=== PATIENT | female | born 1950 | race Caucasian/White ===

== ENCOUNTER 2018-09-22 09:47 | Inpatient (IN) | payer MEDICARE, OTHER ==
[2018-09-19 09:00] LABS: BASOPHILS % 0.4 % (0.0-1.0); EOSINOPHILS # (AUTO) 0.1 (0.0-0.4); EOSINOPHILS % 1.2 % (0.0-6.0); HEMATOCRIT 42.1 % (34.2-44.1); HEMOGLOBIN 13.9 g/dL (12.0-16.0); LYMPHOCYTES # (AUTO) 3.3 (1.0-3.2); LYMPHOCYTES % 40.6 % (18.0-39.1); MEAN CORPUSCULAR HEMOGLOBIN 29.7 pg (28-32); MONOCYTES # (AUTO) 0.7 (0.2-0.8); MONOCYTES % 8.3 % (4.4-11.3); NEUTROPHILS % 49.3 % (38.7-80.0); PLATELET COUNT 248 x10e3/uL (140-360); RED BLOOD COUNT 4.68 x10e6/uL (3.6-5.1); RED CELL DISTRIBUTION WIDTH 13.9 % (11.7-14.4)
[2018-09-19 09:16] LABS: ANION GAP 14.2 mmol/L (8-16); CALCIUM 9.7 mg/dL (8.4-10.2); CREATININE, SERUM 0.95 mg/dL (0.57-1.11); POTASSIUM 4.2 mmol/L (3.5-5.1)
--- NOTE | 2018-09-19 10:33 | Diagnostic Imaging Report ---
PROCEDURE: X-RAY CHEST, TWO VIEWS COMPARISON: None. INDICATIONS: MORBID OBESITY, PRE-OP, DENIES CHEST COMPLAINTS FINDINGS: LUNGS: No consolidations or edema. PLEURA: No effusions or pneumothorax. HEART & MEDIASTINUM: The heart is within normal size-limits. BONES & SOFT TISSUES: No acute findings. There is mild scoliosis present. CONCLUSION: No acute thoracic abnormality. Ziyad Roman D.O. Dictated by: Ziyad Roman D.O. on 09/19/2018 at 10:44 Electronically approved by: Ziyad Roman D.O. on 09/19/2018 at 10:44
[~2018-09-22] VITALS: Ht 175.3 cm; Wt 112.0 kg
[~2018-09-22 09:47] MED LIST: CALAN SR180 MG PO; COLESTIPOL HCL1 GM PO; FENOFIBRATE200 MG PO; LOSARTAN POTASS25 MG PO; NOVOLOG100 UNIT/1 SQ; PRAVASTATIN SOD40 MG PO; TRESIBA SQ
--- OUTSIDE RECORDS SUMMARY | 2018-09-22 09:49 | XMS REPORT ---
Author Author [facility] Address Unknown Phone Unavailable Care Team Providers Care Alining Inspector Name Role Phone Mer RICHARD Unavailable Unavailable Problems This patient has no known problems. Allergies, Adverse Reactions, Alerts This patient has no known allergies or adverse reactions. Medications This patient has no known medications. Results Test Description Test Time Test Comments Text Results Atomic Results Result Comments CHEST 2 VIEWS 2018-09-19 10:44:00 [place] [address] Patient Name: GALDINO WHITTINGTON MR #: [id number] : 1950 Age/Sex: 67/F Req #: [id number] [facility] Physician: Ordered by: ANDREI RICHARD MD Report #: [id number] Location: OR Room/Bed: Procedure: [id number] DX/CHEST 2 VIEWS Exam Date: 09/19/18 Exam Time: 09 REPORT STATUS: Signed PROCEDURE: X-RAY CHEST, TWO VIEWS COMPARISON: None. IND ICATIONS: MORBID OBESITY, PRE-OP, DENIES CHEST COMPLAINTS FINDINGS: LUNGS: No consolidations or edema. PLEURA: No effusions or pneumothorax. HEART MEDIASTINUM: The heart is within normal size- limits. BONES SOFT TISSUES: No acute findings. There is mild scoliosis present. CONCLUSION: No acute thoracic abnormality. Eve Roman D.O. Dictated by: Eve Roman D.O. on 09/19/2018 at 10:44 Electronically approved by: Eve Roman D.O. on 09/19/2018 at 10:44 Dictated By: EVE ROMAN DO Electr onically Signed By: EVE ROMAN DO on 09/19/18 1044 Transcribed By: LILY on 09/19/18 1044 COPY TO: ANDREI RICHARD MD LIPID PROFILE 2018-09-03 19:47:00 CHOLEST (test code=CHOLEST) 238 MG/DL 0-200 TRIGLYCE (test code=TRIGLYCE) 186 MG/DL 0-150 HDL (test code=HDL) 74 MG/DL 35-90 NEGATIVE RISK FACTOR FOR HEART DISEASE IF HDL >/=60 mg/dl MAJOR RISK FACTOR FOR HEART DISEASE IF HDL <40 mg/dL CALC LDL (test code=CALC LDL) 127 MG/DL <100 [id number] 19:47:00* Test Item Value Reference Range Comments MG (test code=MG) 1.7 mg/dL 1.6-2.3 THYROID STIMULATION [id number] 19:47:00* Test Item Value Reference Range Comments TSH (test code=TSH) 1.89 UIU/ML 0.465-4.68 VITAMIN D [id number] 19:47:00* Test Item Value Reference Range Comments VITAMIN D, 25-HYDROXY (test code=VITD,25) 15.4 Vitamin D guideline has been defined by the [place] [employer] and [employer] practice as followed: Deficient: less than 20 ng/mL Insufficient: 21-29 ng/mL Sufficient: 30-100 ng/mL Potential Toxicity: >100ng/mL [id number] 19:46:00* Test Item Value Reference Range Comments SODIUM (test code=NA) 140 MMOL/L 137-145 K+ (test code=KSERUM) 4.2 MMOL/L 3.5-5.1 PLEASE NOTE NEW REFERENCE RANGE(S) IN EFFECT EFFECTIVE 05/11/2010 - NEW ANALYZER (VITROS 5600) CHLORIDE (test code=CL) 103 MMOL/L 98-107 CO2 (test code=CO2) 28 MMOL/L 22-30 BUN (test code=BUN) 18 MG/DL 7-17 CREA (test code=CREA) 0.9 MG/DL 0.7-1.2 GLUCOSE (test code=GLUCOSE) 156 MG/DL 70-99 Fasting glucose normal <100 MG/DL- [place] [employer] recommendation CALCIUM (test code=CABLOOD) 9.3 MG/DL 8.4-10.2 TOTPROT (test code=TOTPROT) 7.2 G/DL 6.3-8.2 ALBUMIN (test code=ALBSERUM) 4.3 G/DL 3.5-5.0 BILITOT (test code=BILITOT) 0.5 MG/DL 0.2-1.3 AST (test code=AST) 24 U/L 15-46 PHOSALK (test code=PHOSALK) 124 U/L 38-126 ALT (test code=ALT) 27 U/L 13-69 GFR (test code=GFR) 66 mL/min/1.73m2 A GFR of >90 mL/min/1.73m2 is considered normal. % HEMOGLOBIN A1C (GLYCATED)2018-09-03 19:10:00* Test Item Value Reference Range Comments HEMOGLOBIN A1C (test code=GLYCO-) 8.9 % 0-6 THERAPEUTIC TARGET FOR THE TREATMENT OF DIABETES MELLITUS PATIENTS IS < 7% HBA1C. [employer] AND [place] [employer]. DIABETES CARE 2002;25:S33-S49 [id number] 18:03:00* Test Item Value Reference Range Comments WBC (test code=WBC) 8.4 K/UL 3.5-10.9 RBC (test code=RBC) 4.79 M/UL 4.0-5.0 HGB (test code=HGB) 14.2 G/DL 11.5-15.5 HCT (test code=HCT) 41.5 % 34-46 MCV (test code=MCV) 86.6 FL 80-98 MCH (test code=MCH) 29.6 PG 28-32 MCHC (test code=MCHC) 34.2 G/DL 32.5-36.5 RDW (test code=RDW) 14.0 % 11.5-14.5 PLT (test code=PLT) 214 K/UL 150-450 MPV (test code=MPV) 11.3 FL 7.4-10.4 MANDIFF (test code=MANDIFF) NO SCAN (test code=SCAN) NO NEUT% (test code=NEUT%) 51.6 % 40-75 LYMPH% (test code=LYMPH%) 38.4 % 24-44 MONO% (test code=MONO%) 7.6 % 0-13 EOS% (test code=EOS%) 1.8 % 0-4 BASO % (test code=BASO%) 0.4 % 0-2 IG (test code=IG) 0 % 0-1 IG% (test code=IG%) 0.2 % 0-1 IG%=Metamyelocytes, Myelocytes, and Promyelocytes. (Immature neutrophils not including "bands".) > 3% IG indicates risk of sepsis NRBC% (test code=NRBC%) 0 /100 WBC ABS NEUT (test code=NEUT) 4.4 K/UL 1.2-7.2
[2018-09-22] MEDS ORDERED: DEXTROSE 5% 250ML 250 ML IV ONE (10:17)
[2018-09-22] MEDS ORDERED: CEFAZOLIN SOD 2 GM/D5W 50ML 50 ML IV ONE (10:17)
[2018-09-22] MEDS ORDERED: BUPIVACAINE 0.25%/EPI 30ML SDV INJ ONE (10:22)
[2018-09-22] MEDS ORDERED: BUPIVACAINE HCL 0.5% INJ 30 ML VIAL INJ ONE (10:24)
[2018-09-22] MEDS ORDERED: SCOPOLAMINE 1.5 MG PATCH TOP SCH (12:00)
[2018-09-22] MEDS ORDERED: ONDANSETRON HCL INJ 2 MG/ML VIAL IV PRN (12:00)
[2018-09-22] MEDS ORDERED: MORPHINE SULFATE 2 MG/ML SYR IV PRN (12:00)
[2018-09-22] MEDS ORDERED: LIDOCAINE HCL (LTA) 4 ML SOLN ONE (12:07)
[2018-09-22] MEDS ORDERED: SCOPOLAMINE 1.5 MG PATCH ONE (12:07)
[2018-09-22] MEDS ORDERED: BUPIVACAINE 0.25% 30ML SDV INJ ONE (12:20)
[2018-09-22] MEDS ORDERED: HYDROMORPHONE 1MG/1ML INJ IV PRN (12:45)
[2018-09-22] MEDS ORDERED: HYDROMORPHONE 2MG/ML 2 MG/ML ML IV PRN (13:30)
[2018-09-22] MEDS ORDERED: SUGAMMADEX SODIUM 200 MG/2 ML VIAL IV ONE (13:31)
[2018-09-22] MEDS ORDERED: FENTANYL CITRATE/PF 100MCG/2 ML INJ ONE ×2 (14:20→17:42)
--- NOTE | 2018-09-22 14:45 | Operative Report ---
DATE OF PROCEDURE: September 22, 2018 PREOPERATIVE DIAGNOSES 1. Morbid obesity, body mass index 37. 2. Type-2 diabetes mellitus. 3. Hiatal hernia. POSTOPERATIVE DIAGNOSES 1. Morbid obesity, body mass index 37. 2. Type-2 diabetes mellitus. 3. Hiatal hernia. PREOP INDICATIONS 1. Treat disease, prevent complications related to comorbid conditions of obesity. 2. Prevent complications related to hiatal hernia. PROCEDURES 1. Laparoscopic vertical sleeve gastrectomy (CPT 17222). 2. Laparoscopic hiatal hernia repair (CPT 90615). ANESTHESIA: General. POKER PROP PLAYER: Benji Sanchez, surgical virtual assistant for advertisers (needed due to complexity of case). FLUIDS: As per anesthesia. EBL: 15 mL. DRAINS: None. COMPLICATIONS: None. SPECIMENS: Partial stomach (opened at the back table, not sent to pathology). FINDINGS 1. Moderate-size hiatal hernia. 2. Normal upper GI anatomy. 3. Negative intraoperative EGD leak test. GRAFTS: None. PROCEDURAL DETAILS: The patient was brought to the operating room and was intubated under general endotracheal anesthesia. She was sterilely prepped and draped in the usual fashion. A preprocedure pause was performed, identifying the patient's name, perioperative antibiotics, intended procedure, and staff surgeon. A 5-mm left subcostal incision was made to insert a Veress needle and insufflate the abdomen to a pressure of 15 mmHg pressure. Four additional trocars were placed in the standard positions. The patient was then placed in reverse Trendelenburg position, and a liver retractor was placed and identified a moderate-size hiatal hernia. I approached this through incising the gastrohepatic ligament through the pars flaccida technique using the [place] LigaSure device. Then I reduced the contents of the hiatal hernia along the length of the right and left crura of the diaphragm. Once the hernia was reduced, I then closed the defect anteriorly with a 2-0 Surgidac suture in a figure-of-8 interrupted fashion. I then turned my attention to the stomach and mobilized the greater curvature of the stomach beginning about 4 cm proximal to the pyloric valve up to the left elias of the diaphragm proximally using the [place] LigaSure device. Once the greater curvature of the stomach was mobilized, I then inserted an adult-size endoscope along the lesser curvature of the stomach. I constructed our gastric sleeve by resecting the greater curvature of the stomach using multiple firings of an Endo DEVORAH purple load [employer] Seamguard reinforced stapling device. Once the greater curvature of the stomach was resected, we conducted an intraoperative EGD leak test, and no leaks were identified along the leave staple line. The specimen was removed through the right periumbilical port site. The port site was closed with #0 Vicryl suture using the Mauricio-Pauline technique in a figure-of-8 fashion. Hemostasis was verified. The liver retractor was removed and the pneumoperitoneum was dissipated. We then removed the trocars and closed the incision sites with 4-0 Monocryl suture in subcuticular fashion. Dermabond dressings were applied. We used 0.25% bupivacaine at both preperitoneal incision sites. The patient tolerated the procedure well. Type of wound was type 2, clean and contaminated. Job#: [id number] JCARLOS REYES
[2018-09-22] MEDS ORDERED: HYDROMORPHONE 2MG/ML 2 MG/ML ML ONE (15:13)
[2018-09-22] MEDS ORDERED: MIDAZOLAM HCL 2 MG/2 ML VIAL ONE (17:42)
[2018-09-22] MEDS ORDERED: ACETAMINOPHEN 1000 MG/100 ML 100 ML IV ONE (18:47)
[2018-09-22] MEDS ORDERED: DEXAMETHASONE SOD PHOS INJ 4 MG/ML VIAL ONE (18:55)
[2018-09-22] MEDS ORDERED: ROCURONIUM BROMIDE 10 MG/ML 5ML VIAL ONE (18:55)
[2018-09-22] MEDS ORDERED: ONDANSETRON HCL INJ 2 MG/ML VIAL ONE (18:55)
[2018-09-22] MEDS ORDERED: SEVOFLURANE INHAL SOLN 250 ML PEN BTL ONE (18:55)
[2018-09-22] MEDS ORDERED: LIDOCAINE HCL 2% LOCAL INJ 5 ML SDV VIAL INJ ONE (18:55)
[2018-09-22] MEDS ORDERED: PROPOFOL IV EMULSION 10 MG/ML 20 ML VIAL ONE (18:55)
--- NOTE | 2018-09-22 21:32 | NUR ---
PT ARRIVED BY HOSPITAL BED, AAOX3, RR EVEN AND NON-LABORED, ON RA. NO S/SX OF DISTRESS NOTED. X5 TROCAR TO ANTERIOR ABD NOTED TO BE CDI. ORIENTED PT TO HOSPITAL ROOM, CALL LIGHT, PHONE AND BED CONTROLS. LEFT PT LAYING SEMI FOWLERS IN BED, BED IN LOW LOCKED POSITION, SIDE RAILS UPX2, CALL LIGHT AND PHONE WITHIN REACH.
[2018-09-22 21:40] VITALS: BP 126/63
[2018-09-22] MEDS: LACTATED RINGER'S 1,000 ML IV SCH ×2 (21:49→23:26)
[2018-09-22 21:50] VITALS: BP 126/63
[2018-09-22 23:00] VITALS: BP 126/63
[2018-09-22] MEDS ORDERED: ACETAMINOPHEN 1000 MG/100 ML IV STA (23:22)
--- NOTE | 2018-09-22 23:24 | NUR ---
SPOKE WITH MD BANDA CONCERNING PT REPORTS OF HEADACHE. NEW ORDERS RECEIVED.
[2018-09-23] VITALS: BP 111/55
[2018-09-23 04:00] VITALS: BP 147/76
[2018-09-23 05:46] LABS: BASOPHILS % 0.2 % (0.0-1.0); HEMATOCRIT 38.4 % (34.2-44.1); HEMOGLOBIN 12.6 g/dL (12.0-16.0); LYMPHOCYTES % 19.3 % (18.0-39.1); MEAN CORPUSCULAR HEMOGLOBIN 29.6 pg (28-32); MEAN CORPUSCULAR HGB CONC 32.8 g/dL (31-35); MEAN CORPUSCULAR VOLUME 90.4 fL (81-99); MONOCYTES # (AUTO) 0.7 (0.2-0.8); MONOCYTES % 6.7 % (4.4-11.3); NEUTROPHILS # (AUTO) 7.6 (2.1-6.9); NEUTROPHILS % 73.4 % (38.7-80.0); PLATELET COUNT 224 x10e3/uL (140-360); RED BLOOD COUNT 4.25 x10e6/uL (3.6-5.1); RED CELL DISTRIBUTION WIDTH 13.8 % (11.7-14.4)
[2018-09-23 06:19] LABS: ALBUMIN 3.3 g/dL (3.5-5.0); ANION GAP 14.9 mmol/L (8-16); CALCIUM 8.7 mg/dL (8.4-10.2); CREATININE, SERUM 1.11 mg/dL (0.57-1.11); MAGNESIUM 2.1 MG/DL (1.3-2.1); PHOSPHORUS 3.6 MG/DL (2.3-4.7); POTASSIUM 4.9 mmol/L (3.5-5.1)
--- NOTE | 2018-09-23 07:05 | NUR ---
Received patient mid fowlers position, side rails upx2, call light within reach. AAOX4 to time, person, place,situation. Respirations even and unlabored. LR 125ml/hr via right forearm. Instructed patient to use call light for assistance. Voiced understanding.
[2018-09-23] MEDS: LACTATED RINGER'S 1,000 ML IV SCH (07:30)
[2018-09-23] MEDS: HYDROCODONE/APAP 7.5MG-325MG 1 EA TAB PO PRN ×2 (07:30→12:40)
[2018-09-23] MEDS ORDERED: ENOXAPARIN SOD INJ 40 MG/0.4 ML SYR SC SCH (08:00)
[2018-09-23 08:20] VITALS: BP 168/77
[2018-09-23 09:12] VITALS: BP 168/77
[2018-09-23] MEDS ORDERED: INSULIN LISPRO 100 UNIT/1 ML 3ML VIAL SQ SCH (09:30)
--- NOTE | 2018-09-23 09:58 | Discharge Summary ---
NO DICTATION, LENGTH 2 SECONDS. GLORIA QUIÑONES MD Job#: [id number]
[2018-09-23] MEDS ORDERED: LOSARTAN POTASSIUM 25 MG TAB PO SCH (10:00)
[2018-09-23] MEDS ORDERED: VERAPAMIL HCL 180 MG TBER PO SCH (10:00)
--- NOTE | 2018-09-23 10:06 | NUR ---
Progress Note S: No complaints O: af, vss; labs reviewed Gen- no acute distress Abd- soft, incisions c/d/i A/P: POD 1, s/p lap hiatal hernia repair and sleeve gastrectomy -Clears, ambulate ,dc home -f/u in 2 weeks in clinic
--- NOTE | 2018-09-23 10:08 | Consultation ---
DATE OF CONSULTATION: September 23, 2018 REASON FOR CONSULTATION: Medical management. HISTORY OF PRESENT ILLNESS: This is a 67-year-old white woman who yesterday underwent successful laparoscopic sleeve gastrectomy. The surgery was performed by her bariatric surgeon, namely Dr. Griffiths. Also during this surgery, the patient underwent laparoscopic hiatal hernia repair. The patient tolerated the surgery quite well. The patient states her only complaint is a headache. Unfortunately, she suffers from chronic occipital headaches. The patient denies any nausea or vomiting. The patient states her pain is well controlled. Blood work done today revealed white blood cell count 10,300 with 73% segmented neutrophils. The patient's hemoglobin is 12.6 g/dL. The patient's BUN and creatinine today are 20 and 1.1 respectively. The patient's potassium today is 4.9. The patient is eager to be discharged home. REVIEW OF SYSTEMS GENERAL: Weight has been stable. No fever or chills. HEENT: No headache. No vision changes. CARDIOVASCULAR: No chest pain. GI: Denies any abdominal pain. : Denies any UTI symptoms. NEUROMUSCULAR: Denies any limb weakness or numbness. ALLERGIES: MORPHINE (CAUSES EXTREME NAUSEA AND VOMITING). FAMILY HISTORY: Mother with type-2 diabetes mellitus. SOCIAL HISTORY: This woman is a . She currently lives in a trailer on her mother's property. No tobacco or alcohol use. The patient states she is currently retired, but she is very physically active. HOME MEDICATIONS 1. Colestid 1 gram t.i.d. 2. Fenofibrate 200 mg daily. 3. NovoLog insulin 24 units subcutaneously daily. 4. Losartan 25 mg a day. 5. Pravastatin 40 mg each bedtime. 6. Verapamil extended release 180 mg a day. 7. Tresiba insulin 20 units subcutaneously daily. SURGICAL HISTORY 1. Laparoscopic cholecystectomy in 2013. 2. Laparoscopic vertical sleeve gastrectomy and hiatal hernia repair yesterday, September 22, 2018. PAST MEDICAL HISTORY 1. Hypertension. 2. Obesity. 3. Type-2 diabetes mellitus. 4. Dyslipidemia. PHYSICAL EXAMINATION GENERAL: She is awake, alert and fully oriented in no distress. Very pleasant. Height is 5 feet 9 inches, and she weighs 247 pounds. BMI 36. VITAL SIGNS: Blood pressure is 168/78. Pulse 88. Respiratory rate 18. Temperature 97.6. INTEGUMENT: Skin is warm and dry. No pallor, jaundice or diaphoresis. HEENT: Anicteric sclerae with moist mucous membranes. NECK: Supple. CARDIOVASCULAR: Regular rate and rhythm. LUNGS: No rales, no rhonchi, no wheeze. ABDOMEN: Soft. Her laparoscopic surgical incision sites are clean, dry and intact with no evidence of infection. The patient has normal bowel sounds. Abdomen is soft and nontender. EXTREMITIES: No edema or deformity. The patient has compression stockings in place. NEUROLOGIC: Intact. DIAGNOSES 1. Status post laparoscopic sleeve gastrectomy. 2. Status post laparoscopic hiatal hernia repair. 3. Hypertension. 4. Type-2 diabetes mellitus. 5. Obesity. Body mass index of 36 complicating her underlying hypertension and type-2 diabetes mellitus. PLAN 1. Resume home medications. 2. Advance diet to clear liquids as per the bariatric surgeon's instructions. 3. Pain control. 4. Mobilize. 5. Recommended patient use incentive spirometer 10 inspirations every hour while awake. 6. Will start enoxaparin for deep venous thrombosis prophylaxis. 7. The patient will likely discharge home either today or tomorrow. I spent 40 minutes in the care of this patient. Job#: [id number]
--- NOTE | 2018-09-23 10:54 | NUR ---
Nutrition Screen Note RD Recommendation for Physician: -Advance diet as tolerated -Rec follow-up as outpatient for further diet education and monitoring Plan of Care: RD following, monitoring for tolerance and adequacy, diet education Nutrition reason for involvement: MD Consult bariatric diet progression Primary Diagnose(s): 1. Status post laparoscopic sleeve gastrectomy. 2. Status post laparoscopic hiatal hernia repair. PMH: HTN, DM, obesity Ht: 69in Wt: 247lb BMI: 36.5kg/m2 IBW: 145lb RD Assessment: (09/23/2018) Chart reviewed. Labs and meds reviewed. 67 yo F, who underwent laparoscopic sleeve gastrectomy and hiatal hernia repair on 09/22. POD 1. Visited pt in the room. Pt complained of some headache and meds were given by RN. Diet was well tolerated without any GI complains. Bariatric diet education was provided. Will continue to monitor and follow. Current Diet: clear liquid Malnutrition Evaluation (09/23/2018) The patient does not meet criteria for a specified degree of malnutrition at this time. Will re-evaluate at follow-up as appropriate. Diet Education Needs Assessment: Diet education indicated, pt is agreeable with plan. Learner(s): pt Barriers: none Cultural/Language Modifications: none Readiness: ready Method: handouts, explanation Topics: bariatric diet progression Understanding/Compliance: Pt understood. All questions have been answered. Nutrition Care Level: low Signed: Thuy Johnson, MS, RD, LD
[2018-09-23] MEDS ORDERED: TYLENOL WITH C1 EACH PO (12:27)
[2018-09-23] MEDS ORDERED: ULTRAM50 MG PO (12:27)
--- NOTE | 2018-09-23 12:55 | NUR ---
right FA IV discontinued. No signs of infiltration noted. 2x2 gauze and tape placed. Taken via wheelchair to personal car by PCT. AAOX4 to time, person,place, situation. Respirations even and unlabored. Trochar sites on abdomen clean, dry, and intact. All personal belongings, discharge instructions, and rx given to patient.
--- NOTE | 2018-09-23 13:36 | NUR ---
CM MET WITH PT IN ROOM PT LIVES WITH HER MOTHER AND SISTER IN A HOUSE IN [place], [place] PT INDEPENDENT PRIOR TO ADMIT HAS A GLUCOMETER AND BLOOD PRESSURE MACHINE IMM EXPLAINED AND SIGNED AND ON CHART COPY TO PT
[2018-09-23] MEDS ORDERED: COLESTIPOL HCL 1 G TAB PO SCH (15:00)
[2018-09-23] MEDS ORDERED: TRESIBA 20 UNIT SC SCH (21:00)
[2018-09-23] MEDS ORDERED: NON-FORMULARY MEDICATION (Pravastatin Sodium 40 MG) PO SCH (21:00)
[2018-09-23] MEDS ORDERED: PRAVASTATIN 20 MG TAB PO SCH (21:00)
--- NOTE | 2018-09-24 08:01 | NUR ---
Dictated DC summary: [id number]
--- NOTE | 2018-09-24 08:27 | Discharge Summary ---
ADMIT DIAGNOSES 1. Obesity. Calculated body mass is 36 complicating her underlying hypertension, type 2 diabetes mellitus. 2. Hypertensive heart disease. 3. Type 2 diabetes mellitus. DISCHARGE DIAGNOSES 1. Status post laparoscopic sleeve gastrectomy. 2. Status post laparoscopic hiatal hernia repair. 3. Hypertensive heart disease. 4. Type 2 diabetes mellitus. 5. Obesity. Calculated body mass is 36 complicating her underlying hypertension and type 2 diabetes mellitus. HOSPITAL COURSE: This is a 67-year-old white woman who has a known history of hypertension, type 2 diabetes mellitus, as well as obesity that complicates her underlying hypertensive heart disease and type 2 diabetes mellitus. During this hospitalization, the patient underwent successful laparoscopic sleeve gastrectomy and hiatal hernia repair. The surgery was performed by her bariatric surgeon, namely Dr. Chan Griffiths. Her brief hospitalization was unremarkable. On discharge, she was tolerating clear liquid diet. DISCHARGE MEDICATIONS 1. Colestid 1 g t.i.d. 2. Fenofibrate 200 mg daily. 3. NovoLog insulin 24 units subcutaneous daily. 4. Losartan 25 mg daily. 5. Pravastatin 40 mg at bedtime. 6. Verapamil extended release 180 mg daily. 7. Tresiba insulin 20 units subcutaneous daily. 8. Tylenol No. 3 one tablet every 6 hours p.r.n. pain. The patient was instructed to follow up with Dr. Griffiths within 2 weeks and to follow up with her primary care physician in 2-3 weeks. The patient was also instructed to follow a bariatric full liquid diet for 1 week followed by pureed diet for 2 more weeks. GLORIA QUIÑONES MD Job#: [id number] RI cc:CHAN GRIFFITHS MD
[2018-09-24] MEDS ORDERED: (Fenofibrate 200 MG) PO SCH (09:00)
== END 2018-09-23 12:55 | disposition home or self-care (01) | DRG 621 ==
LOC: OR 09:47 → PACU V 17:48 → MED/SURG 21:32
PROVIDERS: ADMIT Internal Medicine; ATTEND Internal Medicine
PROC: 0DB64Z3 Excision of Stomach, Percutaneous Endoscopic Approach, Vertical (ICD-10-PCS; principal; 2018-09-22 11:00)
PROC: 0BQT4ZZ Repair Diaphragm, Percutaneous Endoscopic Approach (ICD-10-PCS; 2018-09-22 11:00)
DX: E66.01 Morbid (severe) obesity due to excess calories (principal); Z68.37 Body mass index [BMI] 37.0-37.9, adult; K44.9 Diaphragmatic hernia without obstruction or gangrene; E11.9 Type 2 diabetes mellitus without complications; I11.9 Hypertensive heart disease without heart failure
CPT/HCPCS: 36415; 71046; 80048; 80053; 82948; 83735; 84100; 85025; 86850; 86900; 93005; J0690; J1100; J1650; J2001; J2250; J2405; J7070; J7120